=== PATIENT | male | born 1975 | race Caucasian/White ===

== ENCOUNTER 2018-05-09 16:34 | Emergency (ER) | payer OTHER ==
[2018-05-09 16:40] VITALS: BP 141/92
[2018-05-09] MEDS ORDERED: CEPHALEXIN 500 MG CAPSULE PO ONE (16:50)
[2018-05-09] MEDS ORDERED: DIPH/PERTUSS(ACELL)/TETANUS VAC/PF 0.5 ML SYR (>=10YO) IM ONE (16:50)
[2018-05-09] MEDS ORDERED: SILVER SULFADIAZINE 1% CREAM 400 GM TP SCH (16:52)
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
[2018-05-09] MEDS ORDERED: SILVER SULFADIAZINE 1% CREAM 400 GM TP ONE (17:30)
[2018-05-10] MEDS ORDERED: SILVER SULFADIAZINE 1% CREAM 400 GM TP SCH (10:00)
== END 2018-05-09 17:19 | disposition home or self-care (01) ==
LOC: ER 16:34
DX: S50.11XA Contusion of right forearm, initial encounter (principal); T22.211A Burn of second degree of right forearm, initial encounter; Z23 Encounter for immunization; X08.8XXA Exposure to other specified smoke, fire and flames, initial encounter; Y99.0 Civilian activity done for income or pay
CPT/HCPCS: 99283; 90471; 90715; J3490